=== PATIENT | female | born 1980 | race African-American/Black ===

== ENCOUNTER → 2016-08-21 | Emergency (ER) | payer MEDICAID, OTHER ==
[~2016-08-21] VITALS: Ht 167.6 cm; Wt 70.3 kg
[~2016-08-21] MED LIST: AMLODIPINE BESYL5 MG ORAL; AMOXICILLIN500 MG ORAL; BENADRYL25 MG ORAL; Cephalexin 500mg cap ORAL ONE; FLONASE1 SPRAYS NASAL; FLONASE16 GM NASAL; HYDROCHLOROTHIA25 MG ORAL; IBUPROFEN600 MG ORAL; LISINOPRIL20 MG ORAL; MACROBID100 MG ORAL; ZESTORETIC 20-1 EACH ORAL; ZYRTEC10 MG ORAL
[2016-08-21 00:55] VITALS: BP 147/91
[2016-08-21 01:24] LABS: APPEARANCE,URINE SLIGHTLY CLOUDY; KETONES,URINE 2+ (NEGATIVE); LEUKOCYTE ESTERASE ,URINE 3+ (NEGATIVE); NITRITE,URINE NEGATIVE (NEGATIVE); PH,URINE 5 (4.5-8.0); PROTEIN,URINE 1+ (NEGATIVE); UROBILINOGEN,URINE NORMAL MG/DL (0.0-1.0)
[2016-08-21 01:32] LABS: BACTERIA,URINE FEW /HPF; SQUAMOUS EPITHELIAL CELL,UR MODERATE /LPF (NONE/OCC); WBC,URINE 20-30 /HPF (0 - 2)
--- NOTE | 2016-08-21 01:42 | Emergency Room Report ---
History of Present Illness General Chief Complaint: General Complaint Source: Patient Present Illness HPI This is a 36-year-old female who presents with chief complaint of transient short of breath earlier today. Now she complaining of cramping her leg. Also some suprapubic cramps. Denies any fever chills denies any nausea vomiting. Denies any chest pain. Eating drinking normally. No longer short of breath. She was concerned so she went into check. She felt anxious. History of anxiety. Allergies: Coded Allergies: No Known Allergies (Unverified , 08/21/16) Patient History Past Medical History: see triage record, old chart reviewed Past Surgical History: none Pertinent Family History: none Social History: Denies: smoking Last Menstrual Period: yesterday Now: No : 0 Para: 0 Immunizations: other Reviewed Nursing Documentation: PMH: Agreed, PSxH: Agreed Nursing Documentation-PMH Past Medical History: No History, Except For Hx Cardiac Problems: Yes - heart murmur Hx Hypertension: Yes Hx Pacemaker: No Hx Asthma: No Hx COPD: No Hx Diabetes: No Hx Cancer: No Hx Gastrointestinal Problems: No Hx Dialysis: No Hx Neurological Problems: No Hx Cerebrovascular Accident: No Hx Seizures: No Review of Systems Eye: Denies: blurred vision, eye pain ENT: Denies: ear pain, nose congestion, throat swelling Respiratory: Denies: cough, shortness of breath Cardiovascular: Denies: chest pain, palpitations Gastrointestinal: Denies: abdominal pain, diarrhea, nausea, vomiting Musculoskeletal: Denies: back pain, joint pain Skin: Denies: rash Neurological: Denies: headache, numbness Endocrine: Denies: increased thirst, increased urine Hematologic/Lymphatic: Denies: easy bruising All Other Systems: negative except mentioned in HPI Physical Exam Vital Signs Date Time Temp Pulse Resp B/P Pulse Ox O2 Delivery O2 Flow Rate FiO2 08/21/16 00:49 98.4 76 16 147/91 99 Room Air vitals unremarkable Sp02 EP Interpretation: reviewed, normal General Appearance: well appearing, no apparent distress, alert Head: normocephalic, atraumatic Eyes: bilateral eye EOMI, bilateral eye PERRL ENT: hearing grossly normal, normal pharynx Neck: full range of motion, supple, no meningismus Respiratory: chest non-tender, lungs clear, normal breath sounds Cardiovascular #1: regular rate, rhythm, no murmur Gastrointestinal: normal bowel sounds, non tender, no mass, no organomegaly, no bruit, non-distended Musculoskeletal: back normal, gait/station normal, normal range of motion Psychiatric: mood/affect normal Skin: warm/dry Medical Decision Making Diagnostic Impression: Primary Impression: UTI (urinary tract infection) Qualified Codes: N30.00 - Acute cystitis without hematuria ER Course Patient with vague symptom. The beginning of viral is pink and anxiety. She does have potential for UTI. Will put on antibiotics. We'll discharge home. Last Vital Signs Date Time Temp Pulse Resp B/P Pulse Ox O2 Delivery O2 Flow Rate FiO2 08/21/16 00:55 98.4 78 16 147/91 99 Room Air Status: improved Disposition: HOME, SELF-CARE Condition: Stable Scripts Nitrofurantoin Monohyd/M-Cryst (Nitrofurantoin [place]-Mcr 100 mg) 100 Mg Capsule 100 MG ORAL Q12H, #14 CAP Prov: LAWRENCE ARIZMENDI M.D. 08/21/16 Additional Instructions: Followup with your DrFaith in 7 days. Return if symptom worsen. LAWRENCE ARIZMENDI M.D. Aug 21, 2016 01:42
[2016-08-21 01:48] VITALS: BP 147/91
== END | disposition home or self-care (01) ==
LOC: EMR 01:10
DX: N39.0 Urinary tract infection, site not specified (principal); I10 Essential (primary) hypertension
CPT/HCPCS: 81003; 81025; 87086; 99282

== ENCOUNTER 2016-09-29 22:56 | Emergency (ER) | payer SELFPAY ==
[~2016-09-29] VITALS: Ht 167.6 cm; Wt 72.1 kg
[~2016-09-29 22:56] MED LIST changes: -Cephalexin 500mg cap ORAL ONE
--- NOTE | 2016-09-29 23:44 | Emergency Room Report ---
History of Present Illness General Chief Complaint: Lower Extremity Injury Source: Patient Present Illness HPI Is a pleasant 36-year-old female with no past medical history. She presents with chief complaint of swelling to the left leg. She bumped her leg into her car door a week ago. It swell up. devulcanizer tender. She checked her symptom on line and thought that she may have a blood clot. She was concerned as when she is here. Minimal pain. No fever or chills but no nausea no vomiting. No shortness of breath. Allergies: Coded Allergies: No Known Allergies (Unverified , 08/21/16) Patient History Past Medical History: see triage record, old chart reviewed Past Surgical History: none Pertinent Family History: none Social History: Denies: smoking Last Menstrual Period: 3 WEEKS AGO Immunizations: other Reviewed Nursing Documentation: PMH: Agreed, PSxH: Agreed Nursing Documentation-PMH Hx Cardiac Problems: Yes - heart murmur Hx Hypertension: Yes Hx Pacemaker: No Hx Asthma: No Hx COPD: No Hx Diabetes: No Hx Cancer: No Hx Gastrointestinal Problems: No Hx Dialysis: No Hx Neurological Problems: No Hx Cerebrovascular Accident: No Hx Seizures: No Review of Systems Eye: Denies: blurred vision, eye pain ENT: Denies: ear pain, nose congestion, throat swelling Respiratory: Denies: cough, shortness of breath Cardiovascular: Denies: chest pain, palpitations Gastrointestinal: Denies: abdominal pain, diarrhea, nausea, vomiting Musculoskeletal: Denies: back pain, joint pain Skin: Denies: rash Neurological: Denies: headache, numbness Endocrine: Denies: increased thirst, increased urine Hematologic/Lymphatic: Denies: easy bruising All Other Systems: negative except mentioned in HPI Physical Exam Vital Signs Date Time Temp Pulse Resp B/P Pulse Ox O2 Delivery O2 Flow Rate FiO2 09/29/16 23:23 98.4 66 18 135/88 100 Room Air vitals normal Sp02 EP Interpretation: reviewed, normal General Appearance: well appearing, no apparent distress, alert Head: normocephalic, atraumatic Eyes: bilateral eye EOMI, bilateral eye PERRL ENT: hearing grossly normal, normal pharynx Neck: full range of motion, supple, no meningismus Respiratory: chest non-tender, lungs clear, normal breath sounds Cardiovascular #1: regular rate, rhythm, no murmur Gastrointestinal: normal bowel sounds, non tender, no mass, no organomegaly, no bruit, non-distended Musculoskeletal: back normal, gait/station normal, normal range of motion, other - left lower tibial area: small ecchymosis. Neurologic: alert, oriented x3 Psychiatric: mood/affect normal Skin: warm/dry Medical Decision Making Diagnostic Impression: Primary Impression: Contusion of left lower leg, initial encounter ER Course She presents with a small contusion to the distal third of the tibia area. No calf tenderness. No evidence of fracture. No evidence of DVT. We'll discharge home with reassurance. Last Vital Signs Date Time Temp Pulse Resp B/P Pulse Ox O2 Delivery O2 Flow Rate FiO2 09/29/16 23:23 98.4 66 18 135/88 100 Room Air Status: unchanged Disposition: HOME, SELF-CARE Condition: Stable Additional Instructions: Follow up with your doctor as needed. Return if worse. LAWRENCE ARIZMENDI M.D. Sep 29, 2016 23:44
[2016-09-29 23:53] VITALS: BP 135/88
== END 2016-09-29 23:54 | disposition home or self-care (01) ==
LOC: EMR 23:43
DX: S80.12XA Contusion of left lower leg, initial encounter (principal); W22.8XXA Striking against or struck by other objects, initial encounter; Y92.9 Unspecified place or not applicable; I10 Essential (primary) hypertension
CPT/HCPCS: 99282

== ENCOUNTER 2017-03-25 23:12 | Emergency (ER) | payer OTHER ==
[~2017-03-25] VITALS: Ht 167.6 cm; Wt 70.3 kg
--- NOTE | 2017-03-25 23:38 | Emergency Room Report ---
History of Present Illness General Chief Complaint: Chest Pain Source: Patient Present Illness HPI 36YOF walk-in with 4 days "chest heaviness" assoc with cough, generalized myalgias, and chills Denies SOB No sick contacts History of HTN, controlled Had "physical" 2 months ago that was "normal." Allergies: Coded Allergies: No Known Allergies (Unverified , 03/25/17) Patient History Past Medical History: HTN Past Surgical History: none Pertinent Family History: none Social History: Denies: alcohol use, drug use, smoking Last Menstrual Period: 03/10/17 Now: No Immunizations: UTD Reviewed Nursing Documentation: PMH: Agreed, PSxH: Agreed Nursing Documentation-PMH Past Medical History: No History, Except For Hx Cardiac Problems: Yes - heart murmur Hx Hypertension: Yes Hx Pacemaker: No Hx Asthma: No Hx COPD: No Hx Diabetes: No Hx Cancer: No Hx Gastrointestinal Problems: No Hx Dialysis: No Hx Neurological Problems: No Hx Cerebrovascular Accident: No Hx Seizures: No Review of Systems All Other Systems: negative except mentioned in HPI Physical Exam Vital Signs Date Time Temp Pulse Resp B/P Pulse Ox O2 Delivery O2 Flow Rate FiO2 03/25/17 23:14 97.9 65 16 125/83 100 Room Air Sp02 EP Interpretation: reviewed, normal General Appearance: normal inspection, well appearing, no apparent distress, alert, GCS 15, non-toxic Head: normocephalic, atraumatic Eyes: bilateral eye EOMI, bilateral eye PERRL ENT: normal ENT inspection, hearing grossly normal, normal voice Neck: normal inspection, full range of motion, supple, no bony tend Respiratory: normal inspection, lungs clear, normal breath sounds, no rhonchi, no respiratory distress, no retraction, no accessory muscle use, no wheezing, speaking full sentences Cardiovascular #1: regular rate, rhythm, no edema Gastrointestinal: normal inspection, normal bowel sounds, non tender, soft, no guarding, no hernia Genitourinary: no CVA tenderness Musculoskeletal: normal inspection, back normal, normal range of motion, Darrick' s Sign negative Neurologic: normal inspection, alert, oriented x3, responsive, 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 Afebrile Associated with myalgias, cough Unlikely ACS - no CAD risk factors. ECG was no ischemia or pericarditis CXR: No PNA Rx ibuprofen as needed Will treat for CAP with Zpack given chills, myalgias, 4 days symptoms PMD followup DC home EKG Diagnostic Results Rate: normal Rhythm: NSR ST Segments: no acute changes ASA given to the pt in ED: No Chest X-Ray Diagnostic Results Chest X-Ray Diagnostic Results : Chest X-Ray Ordered: Yes # of Views/Limited/Complete: 1 View Indication: Chest Pain EP Interpretation: Yes Interpretation: no consolidation, no effusion, no pneumothorax, no acute cardiopulmonary disease Impression: No acute disease Interpreting ER Provider: Electronically signed by Dr Morrissey Last Vital Signs Date Time Temp Pulse Resp B/P Pulse Ox O2 Delivery O2 Flow Rate FiO2 03/25/17 23:14 97.9 65 16 125/83 100 Room Air Status: improved Disposition: HOME, SELF-CARE Scripts Ibuprofen* (MOTRIN*) 600 Mg Tablet 600 MG ORAL THREE TIMES A DAY Y for myalgias for 7 Days, #30 TAB 0 Refills Prov: SKINNY MORRISSEY M.D. 03/25/17 Azithromycin* (ZITHROMAX*) 250 Mg Tablet 250 MG ORAL DAILY, #6 TAB 0 Refills Take two tables once daily for 1 day, then one tablet once daily for 4 days. Prov: SKINNY MORRISSEY M.D. 03/25/17 SKINNY MORRISSEY M.D. Mar 25, 2017 23:38
[2017-03-25] MEDS ORDERED: ZITHROMAX250 MG ORAL (23:47)
[2017-03-25] MEDS ORDERED: IBUPROFEN600 MG ORAL (23:47)
[2017-03-25 23:53] VITALS: BP 125/83
--- NOTE | 2017-03-26 11:10 | Diagnostic Imaging Report ---
Indication: Chest pain Technique: One view of the chest Comparison: none Findings: Lungs and pleural spaces are clear. Heart size is normal. Impression: No acute process This agrees with the preliminary interpretation provided by the emergency room physician
== END 2017-03-25 23:53 | disposition home or self-care (01) ==
LOC: EMR 23:25
DX: R07.9 Chest pain, unspecified (principal); M79.1 Myalgia; I10 Essential (primary) hypertension; R01.1 Cardiac murmur, unspecified
CPT/HCPCS: 71010; 93005; 99284